=== PATIENT | female | born 1995 | race Two or more races ===

== ENCOUNTER 2019-09-03 09:03 | Emergency (ER) | payer SELFPAY ==
[2019-09-03 09:11] VITALS: BP 121/65
[2019-09-03] MEDS ORDERED: KETOROLAC TROMETHAMINE INJ/PF 30 MG/1 ML SDV IV ONE (09:43)
--- NOTE | 2019-09-03 09:45 | ER Document Report ---
ED Medical Screen (RME) - General Chief Complaint: Abdominal Pain Stated Complaint: SHOULDER PAIN Time Seen by Provider: 09/03/19 09:21 Mode of Arrival: Ambulatory Information source: Patient Notes: Patient is a 24-year-old female presenting to the emergency department with chief complaint of right lower quadrant abdominal pain that is been ongoing for the last 3 days with associated nausea. Patient reports today she has developed left-sided chest pain that is worse with breathing or movement. She denies any shortness of breath, denies any dysuria, denies fever, vomiting, diarrhea or a bnormal vaginal discharge. She reports no history of similar symptoms. Denies past medical history, does not take any daily medications and she has had a tubal ligation in the past. Exam: Reproducible pain with palpation to the left chest wall, tenderness to palpation to the right lower quadrant. I have greeted and performed a rapid initial assessment of this patient. A comprehensive ED assessment and evaluation of the patient, analysis of test results and completion of the medical decision making process will be conducted by additional ED providers. I have specifically instructed the patient or family members with the patient to immediately return to any nursing staff should anything change in the patient's condition or with their chief complaint. This medical record was dictated with voice recognizing software. There may be grammatical, syntax errors that are unintended. Physical Exam - Vital signs Vitals: Temp Pulse Resp BP Pulse Ox 98.3 F 78 16 121/65 97 09/03/19 09:10 09/03/19 09:10 09/03/19 09:10 09/03/19 09:10 09/03/19 09:10 Course - Vital Signs Vital signs: Temp Pulse Resp BP Pulse Ox 98.3 F 78 16 121/65 97 09/03/19 09:10 09/03/19 09:10 09/03/19 09:10 09/03/19 09:10 09/03/19 09:10
[2019-09-03 10:31] LABS: ABSOLUTE EOSINOPHILS # (AUTO) 0.1 10^3/uL (0.0-0.6); ABSOLUTE LYMPHOCYTES (AUTO) 1.8 10^3/uL (0.5-4.7); ABSOLUTE MONOCYTES (AUTO) 0.2 10^3/uL (0.1-1.4); ABSOLUTE NEUT (AUTO) 3.8 10^3/uL (1.7-8.2); BASOPHILS % (AUTO) 0.5 % (0-2); EOSINOPHILS % (AUTO) 1.1 % (0-6); HEMATOCRIT 33.3 % (36.0-47.0); HEMOGLOBIN 10.4 g/dL (12.0-15.5); LYMPHOCYTES % (AUTO) 30.7 % (13-45); MEAN CORPUSCULAR HEMOGLOBIN 22.5 pg (27.0-33.4); MEAN CORPUSCULAR HGB CONC 31.3 g/dL (32.0-36.0); MEAN CORPUSCULAR VOLUME 72 fl (80-97); MONOCYTES % (AUTO) 3.4 % (3-13); PLATELET COUNT 417 10^3/uL (150-450); RED BLOOD COUNT 4.63 10^6/uL (3.72-5.28); RED CELL DISTRIBUTION WIDTH 16.9 % (11.5-14.0); SEGMENTED NEUTROPHILS % (AUTO) 64.3 % (42-78); TOTAL CELLS COUNTED % (AUTO) 100 %; WHITE BLOOD COUNT 5.9 10^3/uL (4.0-10.5)
[2019-09-03 10:53] LABS: ALBUMIN 4.2 g/dL (3.5-5.0); ALKALINE PHOSPHATASE 87 U/L (38-126); ANION GAP 9 (5-19); ASPARTATE AMINO TRANSFERASE 24 U/L (14-36); BILIRUBIN,DIRECT 0.1 mg/dL (0.0-0.4); BILIRUBIN,TOTAL 0.3 mg/dL (0.2-1.3); BLOOD UREA NITROGEN 8 mg/dL (7-20); CALCIUM 8.9 mg/dL (8.4-10.2); CARBON DIOXIDE 28 mmol/L (22-30); CHLORIDE 103 mmol/L (98-107); GLUCOSE 92 mg/dL (75-110); POTASSIUM 3.8 mmol/L (3.6-5.0); TOTAL PROTEIN 7.8 g/dL (6.3-8.2)
--- NOTE | 2019-09-03 11:24 | RADIOLOGY REPORT (SQ) ---
EXAM DESCRIPTION: CT ABD/PELVIS WITH IV ONLY COMPLETED DATE/TIME: 09/03/2019 11:08 am REASON FOR STUDY: rlq pain COMPARISON: None. TECHNIQUE: CT scan of the abdomen and pelvis performed using helical scanning technique with dynamic intravenous contrast injection. No oral contrast. Images reviewed with lung, soft tissue, and bone windows. Reconstructed coronal and sagittal MPR images reviewed. Delayed images for evaluation of the urinary system also acquired. All images stored on PACS. All CT scanners at this facility use dose modulation, iterative reconstruction, and/or weight based d osing when appropriate to reduce radiation dose to as low as reasonably achievable (ALARA). [facility]: Dose Right [facility]: CareDose [facility]: Dose Right [facility]: Teradose 4D [facility]: M87 CONTRAST TYPE AND DOSE: 79 mL Omnipaque 350 iodinated contrast IV RENAL FUNCTION: None required. The patient is less than 50 years old. RADIATION DOSE: 1071 mGy cm LIMITATIONS: Extensive breath motion artifact FINDINGS: LOWER CHEST: No significant findings. No nodules or infiltrates. LIVER: Normal size. No masses. No dilated ducts. SPLEEN: Normal size. No focal lesions. PANCREAS: No masses. No significant calcifications. No adjacent inflammation or peripancreatic fluid collections. Pancreatic duct not dilated. GALLBLADDER: Rim calcified gallstone in the gallbladder. No inflammatory changes to suggest cholecys titis. ADRENAL GLANDS: No significant masses or asymmetry. RIGHT KIDNEY AND URETER: No solid masses. No significant calcifications. No hydronephrosis or hyd roureter. LEFT KIDNEY AND URETER: No solid masses. No significant calcifications. No hydronephrosis or hydr oureter. AORTA AND VESSELS: No aneurysm. No dissection. Renal arteries, SMA, celiac without stenosis. RETROPERITONEUM: No retroperitoneal adenopathy, hemorrhage or masses. BOWEL AND PERITONEAL CAVITY: No masses or inflammatory changes. No free fluid or peritoneal masses. APPENDIX: Normal. PELVIS: No mass. No free fluid. Normal bladder. ABDOMINAL WALL: There is a soft tissue nodule in the deep subcutaneous adipose tissue overlying the r ight lower quadrant abdominal wall measuring 1.6 cm (series 3, image 79), of uncertain significance a nd potentially related to abscess, prior surgical procedure, injection granuloma, or other process. No hernias. BONES: No significant or acute findings. OTHER: No other significant finding. IMPRESSION: 1. No definite CT findings in the abdomen or pelvis to explain right lower quadrant abd ominal pain. 2. There is a soft tissue nodule in the deep subcutaneous adipose tissue overlying the right lower qu adrant abdominal wall measuring 1.6 cm (series 3, image 79), of uncertain significance and potentiall y related to abscess, prior surgical procedure, injection granuloma, or other process. Correlate for referable pain and point tenderness. Ultrasound may be helpful to further characterize. 2. Normal appendix. 3. Cholelithiasis. TECHNICAL DOCUMENTATION: JOB ID: [id number] Quality ID # [id number]: Final reports with documentation of one or more dose reduction techniques (e.g., Au tomated exposure control, adjustment of the mA and/or kV according to patient size, use of iterative reconstruction technique) 2010 [employer]- All Rights Reserved Reading location - IP/workstation name: [email or web address]
--- NOTE | 2019-09-03 11:27 | RADIOLOGY REPORT (SQ) ---
EXAM DESCRIPTION: CHEST 2 VIEWS COMPLETED DATE/TIME: 09/03/2019 11:01 am REASON FOR STUDY: chest pain COMPARISON: None. EXAM PARAMETERS: NUMBER OF VIEWS: two views TECHNIQUE: Digital Frontal and Lateral radiographic views of the chest acquired. RADIATION DOSE: NA LIMITATIONS: none FINDINGS: LUNGS AND PLEURA: No opacities, masses or pneumothorax. No pleural effusion. MEDIASTINUM AND HILAR STRUCTURES: No masses or contour abnormalities. HEART AND VASCULAR STRUCTURES: Heart normal size. No evidence for failure. BONES: No acute findings. HARDWARE: None in the chest. OTHER: Bilateral cervical ribs. IMPRESSION: 1. NO ACUTE RADIOGRAPHIC FINDING IN THE CHEST. TECHNICAL DOCUMENTATION: JOB ID: [id number] [employer]- All Rights Reserved Reading location - IP/workstation name: [email or web address]
[2019-09-03 11:42] LABS: APPEARANCE,URINE CLEAR; BILIRUBIN,URINE NEGATIVE (NEGATIVE); COLOR,URINE YELLOW; GLUCOSE, URINE NEGATIVE (NEGATIVE); KETONES,URINE NEGATIVE (NEGATIVE); LEUKOCYTE ESTERASE,URINE NEGATIVE (NEGATIVE); NITRITE,URINE NEGATIVE (NEGATIVE); PROTEIN,URINE NEGATIVE (NEGATIVE); UROBILINOGEN,URINE NEGATIVE mg/dL (<2.0)
[2019-09-03 11:43] LABS: URINE SPECIFIC GRAVITY > 1.060
--- NOTE | 2019-09-03 14:04 | RADIOLOGY REPORT (SQ) ---
EXAM DESCRIPTION: U/S ABDOMEN LIMITED W/O DOP COMPLETED DATE/TIME: 09/03/2019 1:31 pm REASON FOR STUDY: rlq pain/lesion seen on CT COMPARISON: CT of the abdomen and pelvis dated 09/03/2019. TECHNIQUE: Dynamic and static grayscale images acquired of the localized site of clinical concern an d recorded on PACS. Additional selected color Doppler and spectral images recorded. SITE OF CONCERN: Right lower quadrant of the abdomen -upper mid pelvic region LIMITATIONS: None. FINDINGS: A solid slightly lobulated mass in the subcutaneous soft tissue tissues, right upper lower quadrant of the abdomen--upper mid pelvic region, measures 1.3 x 1.3 x 1.1 cm. Blood flow is demons trated. This finding correlates to the CT abdomen and pelvis examination dated 09/03/2019. Consider ations for this finding includes endometrioma, inflammatory/infectious etiology, as well as other yann ologies. The right ovary is identified adjacent to the uterus in the pelvic cavity which measures 2.6 x 2.5 x 1.8 cm. It is unremarkable in appearance. IMPRESSION: 1. A lobulated solid mass in the right lower quadrant of the abdomen-upper mid pelvic r egion as described above. Considerations for this finding includes an endometrioma, inflammatory/ in fectious etiology, as well as other etiologies. Correlation suggested. TECHNICAL DOCUMENTATION: JOB ID: [id number] [employer]- All Rights Reserved Reading location - IP/workstation name: [email or web address]
--- NOTE | 2019-09-03 14:47 | ER Document Report ---
ED General - General Chief Complaint: Abdominal Pain Stated Complaint: SHOULDER PAIN Time Seen by Provider: 09/03/19 09:21 Mode of Arrival: Ambulatory Information source: Patient TRAVEL OUTSIDE OF THE [place] IN LAST 30 DAYS: No - HPI Notes: Patient comes in with 2 complaints. One is of right lower quadrant abdominal pain. The other is of left-sided chest pain. The right lower quadrant abdominal pain is been going on for approximate 1 week. It is intermittent. Crampy. Worse with movement and better with rest. No radiation of the pain. She has had no vomiting or diarrhea some nausea. No dysuria urgency or frequency. No vaginal discharge or bleeding. She is also had left sided chest pain for approximate 3 days. But no cough cold or congestion. This pain has been mild to moderate. It is been constant. It is worse with movement and bet ter with rest. No significant radiation of this pain. She has had no fever sweats chills or rashes. - Related Data Allergies/Adverse Reactions: No Known Allergies Allergy (Verified 09/03/19 09:45) Past Medical History - General Information source: Patient - Social History Smoking Status: Never Smoker Chew tobacco use (# tins/day): No Frequency of alcohol use: Occasional Drug Abuse: None Family History: Reviewed & Not Pertinent Patient has suicidal ideation: No Patient has homicidal ideation: No Past Surgical History: Reports: Hx Tubal Ligation Review of Systems - Review of Systems Constitutional: denies: Chills, Fever Cardiovascular: Chest pain. denies: Palpitations Respiratory: denies: Cough, Short of breath Gastrointestinal: Abdominal pain, Nausea -: Yes All other systems reviewed and negative Physical Exam - Vital signs Vitals: Temp Pulse Resp BP Pulse Ox 98.3 F 78 16 121/65 97 09/03/19 09:10 09/03/19 09:10 09/03/19 09:10 09/03/19 09:10 09/03/19 09:10 Interpretation: Normal - General General appearance: Appears well, Alert - HEENT Head: Normocephalic, Atraumatic Eyes: Normal Pupils: PERRL - Respiratory Respiratory status: No respiratory distress Chest status: Nontender Breath sounds: Normal Chest palpation: Normal - Cardiovascular Rhythm: Regular Heart sounds: Normal auscultation Murmur: No - Abdominal Inspection: Normal Distension: No distension Bowel sounds: Normal Tenderness: Tender - Patient has some minimal tenderness to palpation right lower quadrant. No rebound or guarding. Organomegaly: No organomegaly - Back Back: Normal, Nontender - Extremities General upper extremity: Normal inspection, Nontender, Normal color, Normal ROM, Normal temperature General lower extremity: Normal inspection, Nontender, Normal color, Normal ROM, Normal temperature, Normal weight bearing. No: Nicki's sign - Neurological Neuro grossly intact: Yes Cognition: Normal Orientation: AAOx4 Jonas Coma Scale Eye Opening: Spontaneous [place] Coma Scale Verbal: Oriented [place] Coma Scale Motor: Obeys Commands [place] Coma Scale Total: 15 Speech: Normal Motor strength normal: LUE, RUE, LLE, RLE Sensory: Normal - Psychological Associated symptoms: Normal affect, Normal mood - Skin Skin Temperature: Warm Skin Moisture: Dry Skin Color: Normal Course - Re-evaluation Re-evalutation: 09/03/19 14:44 Patient presents with 2 complaints. One is for left-sided chest pain. I see no evidence of any type of cardiopulmonary process. It is reproducible with palpation and seems most consistent with chest wall pain. Patient also has some right lower quadrant abdominal pain for which a lesion is seen within the soft tissues. I have discussed the case with the radiologist. Patient will be arranged for an appointment to have an outpatient ultrasound-guided biopsy of this lesion. I will also refer the patient to [facility] for further follow-up. - Vital Signs Vital signs: Temp Pulse Resp BP Pulse Ox 98.3 F 78 16 121/65 97 09/03/19 09:10 09/03/19 09:10 09/03/19 09:10 09/03/19 09:10 09/03/19 09:10 - Laboratory Result Diagrams: 09/03/19 10:14 09/03/19 10:14 Laboratory results interpreted by me: 09/03/19 09/03/19 09/03/19 10:14 10:14 11:27 Hgb 10.4 L Hct 33.3 L MCV 72 L MCH 22.5 L MCHC 31.3 L RDW 16.9 H Creatinine 0.43 L Urine Blood LARGE H - Diagnostic Test Radiology reviewed: Image reviewed, Reports reviewed - EKG Interpretation by Sc EKG shows normal: Sinus rhythm Rate: Normal - 69 Rhythm: NSR [place]/QRS: No: Right axis deviation, Left axis deviation Discharge - Discharge Clinical Impression: Right lower quadrant abdominal pain, Chest wall pain Condition: Stable Disposition: HOME, SELF-CARE Instructions: Abdominal Pain ([facility]), Chest Wall Pain ([facility]) Additional Instructions: Please call Dr. Ken as soon as possible to arrange follow-up. The interventional radiology department will call you to arrange the appointment for the biopsy. Prescriptions: Tramadol HCl [Ultram] 50 mg PO Q6 PRN 3 Days #12 tablet PRN Reason: Referrals: PRASHANT KEN MD [ACTIVE STAFF] - Follow up in 3-5 days
--- NOTE | 2019-09-03 23:51 | EKG REPORT ---
SEVERITY:- NORMAL ECG - SINUS RHYTHM : Confirmed by: Luz Maria Sosa MD 03-Sep-2019 23:51:09
== END 2019-09-03 15:52 | disposition home or self-care (01) ==
LOC: ER 09:03
DX: R10.31 Right lower quadrant pain (principal); R07.89 Other chest pain; Z98.51 Tubal ligation status
CPT/HCPCS: 93005; 99284; 96374; 36415; 83690; 85025; 81025; 80053; 81001; 71046; 76705; 74177; 93010; J1885

== ENCOUNTER 2019-11-07 08:32 | Emergency (ER) | payer MEDICAID ==
[2019-11-07] MEDS ORDERED: ONDANSETRON 4 MG TAB.RAPDIS PO ONE (10:25)
--- NOTE | 2019-11-07 10:31 | ER Document Report ---
HPI - HPI Patient complains to provider of: vomiting Time Seen by Provider: 11/07/19 10:21 Onset: Yesterday Onset/Duration: Persistent Pain Level: 3 Context: 24-year-old female presents emergency department with complaints of vomiting for 2 days with sore throat. Denies fever and diarrhea. Did not receive her flu vaccine. Denies past medical history. Associated Symptoms: Vomiting, Sore throat Exacerbated by: Denies Relieved by: Denies Similar symptoms previously: No Recently seen / treated by doctor: No - EENT EENT: REPORTS: Sore Throat - REPRODUCTIVE Reproductive: DENIES: : Past Medical History - General Information source: Patient Last Menstrual Period: October 13 - Social History Smoking Status: Never Smoker Frequency of alcohol use: None Drug Abuse: None Family History: Reviewed & Not Pertinent Patient has suicidal ideation: No Patient has homicidal ideation: No - Medical History Medical History: Negative Past Surgical History: Reports: Hx Tubal Ligation Vertical Provider Document - CONSTITUTIONAL Agree With Documented VS: Yes Exam Limitations: No Limitations General Appearance: WD/WN, No Apparent Distress - Nontoxic looking - INFECTION CONTROL TRAVEL OUTSIDE OF THE [place] IN LAST 30 DAYS: No - HEENT HEENT: Atraumatic, Normocephalic, Pharyngeal Erythema - Good airway opens mouth wide clear voice no trismus. negative: Conjuctival Injection, Pharyngeal Exudate, Tympanic Membrane Red - NECK Neck: Normal Inspection, Supple. negative: Lymphadenopathy-Left, Lymphadenopathy-Right - RESPIRATORY Respiratory: Breath Sounds Normal, No Respiratory Distress - CARDIOVASCULAR Cardiovascular: Regular Rhythm, Tachycardia - GI/ABDOMEN Gastrointestinal: Abdomen Soft, Abdomen Non-Tender - MUSCULOSKELETAL/EXTREMETIES Musculoskeletal/Extremeties: MAMAEVE FROM - NEURO Level of Consciousness: Awake, Alert, Appropriate Motor/Sensory: No Motor Deficit - DERM Integumentary: Warm, Dry, No Rash Course - Re-evaluation Re-evalutation: 11/07/19 10:30 24-year-old female presents with vomiting for 2 days. Heart rate slightly tacky. Zofran UA flu and strep ordered with p.o. fluids. 11/07/19 16:47 Urine Color YELLOW 11/07/19 10:30 Urine Appearance SLIGHTLY-CLOUDY 11/07/19 10:30 Urine pH 5.0 (5.0-9.0) 11/07/19 10:30 Ur Specific [place] 1.023 11/07/19 10:30 Urine Protein 30 mg/dL (NEGATIVE) H 11/07/19 10:30 Urine Glucose (UA) NEGATIVE mg/dL (NEGATIVE) 11/07/19 10:30 Urine Ketones 20 mg/dL (NEGATIVE) H 11/07/19 10:30 Urine Blood NEGATIVE (NEGATIVE) 11/07/19 10:30 Urine Nitrite NEGATIVE (NEGATIVE) 11/07/19 10:30 Ur Leukocyte Esterase NEGATIVE (NEGATIVE) 11/07/19 10:30 Urine WBC (Auto) 3 /HPF 11/07/19 10:30 Urine RBC (Auto) 1 /HPF 11/07/19 10:30 Strep positive, influenza negative. Patient instructed on results instructed on penicillin and Zofran. She reports she has been drinking Gatorade since she received the Zofran feels much better. She was instructed on the medications instructed follow-up with primary care provider for recheck within 1 week. She verbalized understanding to all instructions. - Vital Signs Vital signs: Temp Pulse Resp BP Pulse Ox 99.2 F 116 H 22 H 124/70 98 11/07/19 09:03 11/07/19 09:03 11/07/19 09:03 11/07/19 09:03 11/07/19 09:03 Discharge - Discharge Clinical Impression: Sore throat, Vomiting, Strep throat Condition: Stable Disposition: HOME, SELF-CARE Instructions: Antinausea Medication ([facility]), Penicillin V K ([facility]), Sore Throat ([facility]), Strep Throat ([facility]), Vomiting ([facility]) Additional Instructions: *You have been evaluated for a sore throat, vomiting, strep *Take medication as prescribed *Push fluids, gargle with warm salt water and utilize throat lozenges for comfort *Change toothbrush after two days of antibiotics *Do not let anyone drink/eat after you *Good hand washing *Follow-up with a primary care provider within 1 week for recheck *Return to ED for worsening condition change, needs, continued vomiting, concerns Prescriptions: Penicillin V Potassium [Penicillin Vk 500 mg Tablet] 500 mg PO BID #20 tablet Forms: Elevated Blood Pressure
[2019-11-07 10:56] LABS: A TYPE INFLUENZA AG NEGATIVE (NEGATIVE); B INFLUENZA AG NEGATIVE (NEGATIVE)
[2019-11-07 11:01] LABS: APPEARANCE,URINE SLIGHTLY-CLOUDY; BILIRUBIN,URINE NEGATIVE (NEGATIVE); COLOR,URINE YELLOW; GLUCOSE, URINE NEGATIVE (NEGATIVE); KETONES,URINE 20 mg/dL (NEGATIVE); LEUKOCYTE ESTERASE,URINE NEGATIVE (NEGATIVE); NITRITE,URINE NEGATIVE (NEGATIVE); PROTEIN,URINE 30 mg/dL (NEGATIVE); URINE SPECIFIC GRAVITY 1.023
[2019-11-07] MEDS ORDERED: ONDANSETRON ODT 4 MG TAB (6 TAB/ER DISP) PO PRN (11:14)
[2019-11-07 11:57] VITALS: BP 114/70
== END 2019-11-07 11:59 | disposition home or self-care (01) ==
LOC: ER 08:32
DX: J02.0 Streptococcal pharyngitis (principal); R11.10 Vomiting, unspecified; Z98.51 Tubal ligation status
CPT/HCPCS: 99284; 87880; 81025; 81001; 87804; S0119